=== PATIENT | female | born 1955 | race Two or more races ===

== ENCOUNTER 2019-09-01 16:11 | Inpatient (IN) | payer OTHER ==
[~2019-09-01] VITALS: Ht 167.6 cm; Wt 53.5 kg
[2019-09-08] MEDS ORDERED: CLONAZEPAM0.5 M1 PO (13:10)
[2019-09-08] MEDS ORDERED: TRAZODONE HCL150 MG PO (13:10)
[2019-09-18] MEDS ORDERED: PERCOCET 5-3251 EACH PO (10:53)
[2019-09-18] MEDS ORDERED: ANTI-GAS166 MG PO (10:53)
[2019-09-18] MEDS ORDERED: OMEPRAZOLE20 MG PO (10:53)
[2019-09-18] MEDS ORDERED: INTESTINEX680 M1 PO (10:53)
== END 2019-09-18 11:05 | disposition home or self-care (01) | DRG 329 ==
LOC: EDUNIT# 09-08 09:15 → SURH 09-12 06:28 → O/R 09-12 06:28 → SURG 09-12 07:00 → SURH 09-12 15:21
PROVIDERS: ADMIT Surgery
PROC: 0DNB0ZZ Release Ileum, Open Approach (ICD-10-PCS; 2019-09-12)
PROC: 0DJD8ZZ Inspection of Lower Intestinal Tract, Via Natural or Artificial Opening Endoscopic (ICD-10-PCS; 2019-09-12)
PROC: 0DTN0ZZ Resection of Sigmoid Colon, Open Approach (ICD-10-PCS; principal; 2019-09-12 07:00)
PROC: 0DH67UZ Insertion of Feeding Device into Stomach, Via Natural or Artificial Opening (ICD-10-PCS; 2019-09-15)
PROC: 3E0G76Z Introduction of Nutritional Substance into Upper GI, Via Natural or Artificial Opening (ICD-10-PCS; 2019-09-15)
DX: K57.20 Diverticulitis of large intestine with perforation and abscess without bleeding (principal); K65.8 Other peritonitis; K57.00 Diverticulitis of small intestine with perforation and abscess without bleeding; K56.51 Intestinal adhesions [bands], with partial obstruction; E44.0 Moderate protein-calorie malnutrition; K63.89 Other specified diseases of intestine

== ENCOUNTER 2019-09-11 06:04 | Day surgery (SDC) | payer OTHER ==
[~2019-09-11 06:04] MED LIST: CLONAZEPAM0.5 M1 PO; TRAZODONE HCL150 MG PO
== END 2019-09-11 09:55 | disposition home or self-care (01) ==
LOC: AMB-ENDOS 06:04
DX: K57.32 Diverticulitis of large intestine without perforation or abscess without bleeding (principal)

== ENCOUNTER 2020-09-06 06:20 | Day surgery (SDC) | payer OTHER ==
[~2020-09-06 06:20] MED LIST changes: +ANTI-GAS166 MG PO; +INTESTINEX680 M1 PO; +OMEPRAZOLE20 MG PO; +PERCOCET 5-3251 EACH PO
== END 2020-09-06 12:11 | disposition home or self-care (01) ==
LOC: AMB-ENDOS 06:20
PROVIDERS: ATTEND Surgery
DX: K62.89 Other specified diseases of anus and rectum (principal); Z20.828 Contact with and (suspected) exposure to other viral communicable diseases